=== PATIENT | male | born 1950 | race Caucasian/White ===

== ENCOUNTER → 2020-02-27 16:20 | Outpatient (CLI) | payer MEDICARE, MEDICAID, SELFPAY ==
[2020-02-27 16:53] LABS: Basophils # 0.1 K/mm3 (0-0.2); Eosinophils # 0.3 K/mm3 (0.0-0.4); Eosinophils % 3.1 % (0.1-12.0); Hematocrit 43.7 % (42.0-52.0); Hemoglobin 13.9 g/dL (14.1-18.0); Lymphocytes # 1.7 K/mm3 (0.7-4.5); Lymphocytes % 20.5 % (10-50); Mean Corpuscular HGB Conc 31.8 g/dL (31.8-35.4); Mean Corpuscular Hemoglobin 29.7 pg (27.0-31.2); Mean Corpuscular Volume 93.3 fl (80-94); Mean Platelet Volume 9.1 fl (7.4-10.4); Monocytes # 0.7 K/mm3 (0.1-1.0); Monocytes % 8.2 % (1.7-9.3); Neutrophils # 5.6 K/mm3 (1.8-7.8); Neutrophils % 67.2 % (37.0-80.0); Platelet Count 453 K/mm3 (142-424); Red Blood Count 4.68 M/mm3 (4.60-6.20); Red Cell Distribution Width 15.8 % (11.5-17.5); White Blood Count 8.4 K/mm3 (4.8-10.8)
[2020-02-27 17:28] LABS: Alanine Aminotransferase 12 U/L (12-78); Albumin Level 4.1 g/dl (3.5-5.0); Albumin/Globulin Ratio 1.3 (1.1-1.8); Alkaline Phosphatase 118 U/L (38-126); Anion Gap 15.8 mEq/L (5-15); Aspartate Amino Transferase 21 U/L (17-59); Bilirubin,Total 0.4 mg/dl (0.2-1.3); Blood Urea Nitrogen 16 mg/dl (9-20); Calcium 10.7 mg/dl (8.4-10.2); Carbon Dioxide 24 mmol/L (22.0-30.0); Chloride 100 mmol/L (98-107); Chol/HDL Ratio 3.4 (1-3.5); Cholesterol 148 mg/dl (140-200); Estimated Glomerular Filt Rate 84 ml/min (>60); GFR (African American) 101 ML/MIN (>60); Globulin 3.2 g/dL (1.3-3.2); Glucose 123 mg/dl (74-100); HDL Cholesterol 44 mg/dl (40-60); Potassium 4.8 mmoL/L (3.5-5.1); Sodium 135 mmol/L (136-145); Total Protein,Serum 7.3 g/dl (6.3-8.2); Triglycerides 155 mg/dl (30-150); VLDL Cholesterol 31 mg/dL (0-40)
[2020-02-27 17:41] LABS: Direct LDL Cholesterol 89.83 mg/dL (100-129)
[2020-02-27 17:46] LABS: T4 (Thyroxine) 6.2 ug/dl (5.53-11.0)
[2020-02-27 17:59] LABS: Prostate Specific Ag Screen 0.3 ng/ml (0.0-4.0); Thyroid Stimulating Hormone 4.02 uIU/mL (0.465-4.68)
== END ==
PROVIDERS: Visit Provider Family Medicine
DX: G47.00 Insomnia, unspecified (principal); I10 Essential (primary) hypertension; K45.8 Other specified abdominal hernia without obstruction or gangrene; Z12.5 Encounter for screening for malignant neoplasm of prostate
CPT/HCPCS: 80053; 80061; 84436; 84443; 85025; G0103

== ENCOUNTER → 2020-05-07 17:33 | Outpatient (CLI) | payer MEDICARE, MEDICAID, SELFPAY ==
[2020-05-07 18:58] LABS: Hemoglobin A1C 7.6 % (4.0-6.0)
== END ==
PROVIDERS: Visit Provider Family Medicine
DX: E11.9 Type 2 diabetes mellitus without complications (principal); Z79.4 Long term (current) use of insulin
CPT/HCPCS: 83036

== ENCOUNTER → 2021-08-13 16:00 | Outpatient (CLI) | payer MEDICARE, MEDICAID, SELFPAY ==
[2021-08-13 17:53] LABS: Creatinine,Urine Random 37 mg/dL (Not Estab.)
[2021-08-13 18:03] LABS: Alanine Aminotransferase 19 U/L (12-78); Albumin Level 4.2 g/dl (3.5-5.0); Albumin/Globulin Ratio 1.5 (1.1-1.8); Alkaline Phosphatase 89 U/L (38-126); Anion Gap 14.7 mEq/L (5-15); Aspartate Amino Transferase 24 U/L (17-59); Bilirubin,Total 0.4 mg/dl (0.2-1.3); Blood Urea Nitrogen 23 mg/dl (9-20); Calcium 9.9 mg/dl (8.4-10.2); Carbon Dioxide 24 mmol/L (22.0-30.0); Chloride 102 mmol/L (98-107); Chol/HDL Ratio 3.4 (1-3.5); Cholesterol 132 mg/dl (140-200); Estimated Glomerular Filt Rate 83 ml/min (>60); GFR (African American) 101 ML/MIN (>60); Globulin 2.8 g/dL (1.3-3.2); Glucose 212 mg/dl (74-100); HDL Cholesterol 39 mg/dl (40-60); Potassium 4.7 mmoL/L (3.5-5.1); Sodium 136 mmol/L (136-145); Triglycerides 148 mg/dl (30-150); VLDL Cholesterol 30 mg/dL (0-40)
[2021-08-13 18:13] LABS: Basophils # 0.1 K/mm3 (0-0.2); Basophils % 1.4 % (0.1-2.0); Eosinophils # 0.2 K/mm3 (0.0-0.4); Eosinophils % 1.6 % (0.1-12.0); Hematocrit 39.5 % (42.0-52.0); Hemoglobin 12.1 g/dL (14.1-18.0); Lymphocytes # 1.7 K/mm3 (0.7-4.5); Lymphocytes % 18.9 % (10-50); Mean Corpuscular HGB Conc 30.7 g/dL (31.8-35.4); Mean Corpuscular Volume 91.2 fl (80-94); Mean Platelet Volume 8.7 fl (7.4-10.4); Monocytes # 0.7 K/mm3 (0.1-1.0); Monocytes % 7.4 % (1.7-9.3); Neutrophils # 6.4 K/mm3 (1.8-7.8); Neutrophils % 70.8 % (37.0-80.0); Platelet Count 539 K/mm3 (142-424); Red Blood Count 4.33 M/mm3 (4.60-6.20); Red Cell Distribution Width 16.5 % (11.5-17.5); White Blood Count 9.1 K/mm3 (4.8-10.8)
[2021-08-13 18:17] LABS: Hemoglobin A1C 7.3 % (4.0-6.0)
[2021-08-13 18:20] LABS: 25-OH Vitamin D, Total 17.9 ng/mL (30-100)
[2021-08-13 18:35] LABS: Prostate Specific Ag Screen 0.3 ng/ml (0.0-4.0); Thyroid Stimulating Hormone 3.05 uIU/mL (0.465-4.68)
== END ==
PROVIDERS: Visit Provider Family Medicine
DX: Z00.00 Encounter for general adult medical examination without abnormal findings (principal); Z12.5 Encounter for screening for malignant neoplasm of prostate; E55.9 Vitamin D deficiency, unspecified; E11.9 Type 2 diabetes mellitus without complications; F51.01 Primary insomnia; Z79.4 Long term (current) use of insulin
CPT/HCPCS: 80053; 80061; 82043; 82306; 82570; 83036; 84443; 85025; G0103

== ENCOUNTER → 2021-11-23 12:30 | Outpatient (CLI) | payer MEDICARE, MEDICAID, SELFPAY ==
[2021-11-23 13:36] LABS: Basophils # 0.1 K/mm3 (0-0.2); Basophils % 1.3 % (0.1-2.0); Eosinophils # 0.2 K/mm3 (0.0-0.4); Eosinophils % 2.4 % (0.1-12.0); Hematocrit 37.8 % (42.0-52.0); Hemoglobin 11.8 g/dL (14.1-18.0); Lymphocytes # 1.9 K/mm3 (0.7-4.5); Lymphocytes % 24.6 % (10-50); Mean Corpuscular HGB Conc 31.3 g/dL (31.8-35.4); Mean Corpuscular Hemoglobin 27.6 pg (27.0-31.2); Mean Corpuscular Volume 88.3 fl (80-94); Mean Platelet Volume 7.8 fl (7.4-10.4); Monocytes # 0.7 K/mm3 (0.1-1.0); Monocytes % 8.7 % (1.7-9.3); Neutrophils # 4.8 K/mm3 (1.8-7.8); Neutrophils % 62.9 % (37.0-80.0); Platelet Count 467 K/mm3 (142-424); Red Blood Count 4.27 M/mm3 (4.60-6.20); White Blood Count 7.6 K/mm3 (4.8-10.8)
[2021-11-23 13:57] LABS: Alanine Aminotransferase 18 U/L (12-78); Alkaline Phosphatase 90 U/L (38-126); Anion Gap 13.7 mEq/L (5-15); Aspartate Amino Transferase 25 U/L (17-59); Bilirubin,Unconjugated 0.3 mg/dL (0.0-1.1); Blood Urea Nitrogen 19 mg/dl (9-20); Calcium 10.7 mg/dl (8.4-10.2); Carbon Dioxide 29 mmol/L (22.0-30.0); Chloride 97 mmol/L (98-107); Chol/HDL Ratio 2.6 (1-3.5); Cholesterol 130 mg/dl (140-200); Estimated Glomerular Filt Rate 83 ml/min (>60); GFR (African American) 101 ML/MIN (>60); Glucose 120 mg/dl (74-100); HDL Cholesterol 50 mg/dl (40-60); Magnesium 1.8 mg/dl (1.6-2.3); Potassium 4.7 mmoL/L (3.5-5.1); Sodium 135 mmol/L (136-145); Total Protein,Serum 6.8 g/dl (6.3-8.2); Triglycerides 66 mg/dl (30-150); VLDL Cholesterol 13 mg/dL (0-40)
[2021-11-23 13:59] LABS: Bilirubin,Total < 0.1 mg/dl (0.2-1.3)
[2021-11-23 14:08] LABS: Direct LDL Cholesterol 64.49 mg/dL (100-129)
[2021-11-23 14:10] LABS: Free T4 (Free Thyroxine) 0.82 ng/dl (0.78-2.19)
[2021-11-23 14:24] LABS: Thyroid Stimulating Hormone 4.45 uIU/mL (0.465-4.68)
[2021-11-23 15:42] LABS: Bilirubin,Indirect 0.1 mg/dL (0.0-0.9)
== END ==
PROVIDERS: PCP Family Medicine; Visit Provider Internal Medicine
DX: I10 Essential (primary) hypertension (principal); R06.00 Dyspnea, unspecified; R94.31 Abnormal electrocardiogram [ECG] [EKG]; Z79.899 Other long term (current) drug therapy
CPT/HCPCS: 36415; 80048; 80061; 80076; 83735; 84439; 84443; 85025

== ENCOUNTER → 2021-12-13 11:12 | Outpatient (CLI) | payer MEDICARE, MEDICAID, SELFPAY ==
--- NOTE | 2021-12-13 11:57 | NM_ITS ---
APPROVED REPORT Exam: Nuclear Stress Test Indication: short of breath Patient Location: Outpatient Stress Tech: Dyan Hawkins [place] Tech:FRENCH Barrios RT(R)(N) Ht: 6 ft 2 in Wt: 260 lbs HR: 66 bpm BP: 157/78 mmHg BSA: 2.43 m2 TID: 1.14 BMI: 33.3 History: short of breath Procedure: Patient received a 0.4 mg of intravenous Lexiscan, resting heart rate 66 bpm, resting blood pressure 157/78 mmHg, with Lexiscan maximum heart rate achived was 82 bpm which is Less than 85 % of the maximum predicted heart rate and blood pressure was 157/78 mmHg. With Lexiscan, patient denied any complaint of chest pain. patient was unable to lay on his belly for prone images Electrocardiogram Electrocardiogram shows sinus rhythm, with Lexiscan there is less than 1.[address] segment depression noted from the baseline EKG. The EKG portion of the Lexiscan is nondiagnostic. Cardiac Stress and Resting SPECT Images: Cardiac Stress and Resting SPECT images were obtained using technetium 99m Myoview 31.2 mCi stress and 10.14 mCi at rest. Gated SPECT for analysis of segmental wall motion and calculation of the ejection fraction also done. Cardiac stress and rest SPECT images show defect in the inferior wall with normal contractility gated SPECT is likely secondary to soft tissue attenuation, no reversible ischemia seen, compared to ejection fraction is 52% with no regional wall motion abnormality, right ventricle is normal size and contractility. Conclusion: 1. The EKG portion of the Lexiscan is nondiagnostic. 2. No scintigraphic evidence of reversible ischemia seen, compared right ejection fraction 52% with no regional wall motion abnormality, right ventricle is normal size and contractility. 3. Likely normal Lexiscan Myoview study. Electronically signed by : Oral Lombardo MD 12/13/2021 19:37:44
--- NOTE | 2021-12-13 13:50 | HMH.ITSHM ---
Current Home Medications as stated by this patient Adan Rivera or disability representative. []ZOLPIDEM OXYCODONE OMEPRAZOLE INSULIN HYDROCORTISONE GABAPENTIN DULOXETINE CLONIDINE CLONAZEPAM CETIRIZINE BUSPIRONE ATORVASTATIN AMLODIPINE ALLOOPURINOL
--- NOTE | 2021-12-13 14:04 | CA_ITS ---
APPROVED REPORT Exam: Pharmacologic Technologist: Dyan Knutson, Ht: 6 ft 2 in Wt: 260 lbs BSA: 2.43 m2 HR: 65 bpm BP: 157/78 mmHg Medical History Medications: Amlodipine,,,,, Omeprazole,,,,, Gabapentin,,,,, Allopurinol,,,,, Atorvastatin,,,,, Buspirone,,,,, ClonAZEPAM,,,,, INSULIN,,,,, Cymbalta,,,,, OxYCODONE,,,,, CetIRIZINE,,,,, Hydrocortisone,,,,, Stress Test Details Test: LEXISCAN HR Resting HR: 66 bpm Max Heart Rate (APMHR): 149.047658 bpm Max HR Achieved: 82 bpm Target HR (85% APMHR): 126.597984 bpm % of APMHR: 55.03 Recovery HR: 71 bpm BP Resting BP: 157/78 mmHg Max BP: 157/78 mmHg Recovery BP: 149.0/73.0 mmHg ECG Resting ECG: SR 63 bpm Clinical Exercise duration: 04:00 min Highest Stage Achieved: Stress ECG Conclusion Symptoms: SOA, w/ Lexiscan & nausea. no chest pain Arrhythmias/Ectopy: PVC noted ST-T Changes: 1.5mm ST segment depression Conclusion: Electronically signed by : Oral Lombardo MD 12/13/2021 19:34:41
== END ==
PROVIDERS: PCP Family Medicine; Visit Provider Internal Medicine
DX: I10 Essential (primary) hypertension (principal); R00.2 Palpitations; R06.00 Dyspnea, unspecified; R07.89 Other chest pain; R07.9 Chest pain, unspecified; R42 Dizziness and giddiness; R94.31 Abnormal electrocardiogram [ECG] [EKG]
CPT/HCPCS: 78452; 93017; 93306; A9502; J2785

== ENCOUNTER → 2021-12-23 14:07 | Outpatient (CLI) | payer MEDICARE, MEDICAID, SELFPAY ==
--- NOTE | 2021-12-23 14:08 | CA_ITS ---
APPROVED REPORT EXAM: Comprehensive 2D, Doppler, and color-flow Echocardiogram Auto Adjudication Specialist: ANGELIC Barney, RVS Ht: 6 ft 2 in Wt: 256lbs BSA: 2.41 BP: 163/90 mmHg Indications: Obesity-clss III, SOB, Abn ekg, DM, HTN, Leg amputation Echo Enhancing Agent Comments: Extremely poor acoustic windows due to extreme body habitus with inability to maintain positioning. 2D Dimensions IVSd 0.85 cm LVEF (Visual) 62.20 % PWd 0.97 cm LVDd 5.82 cm LVDs 3.84 cm Aortic Root 2.78 cm Left Atrium 3.32 cm LVOT 2.11 cm (M/F) 1.5-2.5 M-Mode Dimensions LA Diam 4.23 cm (1.9-4.0) Ao Diam 3.29 cm (2.0-3.7) TAPSE 1.88 (<1.7) LV Diastology E Decel Time 237.00 (160-240 msec) E/A Ratio 0.81 MED E' 7.40 (< 7 cm/sec) MED A' 13.80 cm/s E'/MED E' Ratio 7.76 (>14) LAT E' 8.40 (<10 cm/sec) LAT A' 6.40 cm/s E/LAT E' Ratio 6.83 (>14) Aortic Valve LVOT Max 106.00 (70-110 cm/s) LVOT VTI 16.40 cm AoV Peak Humza. 133.00 (50-130 cm/s) AO Peak GR. 7.10 mmHg AO Mean GR. 3.50 (<5 mmHg) AO VTI 16.14 (18-25 cm) RONNY (VTI) 3.55 (2.5-4.5 cm2) Mitral Valve MV A Velocity 71.00 (40-130 cm/s) E/A Ratio 0.81 MV Decel. Time 237.00 (160-240 ms) Pulmonary Valve PV Peak Velocity 93.00 (50-150 cm/s) Left Ventricle Left atrium is mildly enlarged, left ventricle is normal size mild concentric left ventricular hypertrophy, estimated ejection fraction 55% with no regional wall motion abnormality, Doppler evidence of impaired LV relaxation seen, tissue Doppler is inadequate. Right Ventricle Right atrium and right ventricle are normal size and contractility. Aortic Valve Aortic valve is minimally thickened and calcified there is no aortic stenosis or aortic insufficiency. Mitral Valve Mitral valve is grossly normal, there is trace mitral regurgitation. Tricuspid Valve Tricuspid valve grossly normal, there is trace tricuspid regurgitation, tricuspid regurgitation jet velocity is inadequate for calculation of the right ventricular systolic pressure. Pulmonic Valve Pulmonic valve is poorly visualized. Great Vessels Aortic root is normal size. Inferior vena cava is poorly visualized. Pericardium No significant pericardial effusion noted. Conclusion 1. Technically difficult study because of the patient factors and poor acoustic windows. 2. Mildly enlarged left atrium, normal left ventricular size, mild concentric left ventricular hypertrophy, estimated ejection fraction 55% with no regional wall motion abnormality, Doppler evidence of impaired LV relaxation seen. 3. Trace mitral and tricuspid regurgitation. 4. No significant pericardial effusion. 5. Inferior vena cava is poorly visualized. Electronically signed by : Oral Lombardo MD 12/24/2021 10:35:55
[2021-12-23 15:27] LABS: Chloride 103 mmol/L (98-107); Potassium 4.8 mmoL/L (3.5-5.1); Sodium 134 mmol/L (136-145)
[2021-12-23 15:30] LABS: Anion Gap 11.8 mEq/L (5-15); Blood Urea Nitrogen 17 mg/dl (9-20); Calcium 9.9 mg/dl (8.4-10.2); Carbon Dioxide 24 mmol/L (22.0-30.0); Estimated Glomerular Filt Rate 83 ml/min (>60); GFR (African American) 101 ML/MIN (>60); Glucose 293 mg/dl (74-100)
== END ==
PROVIDERS: PCP Family Medicine; Visit Provider Nurse Practitioner
DX: R06.00 Dyspnea, unspecified (principal); E11.9 Type 2 diabetes mellitus without complications; I10 Essential (primary) hypertension; Z79.4 Long term (current) use of insulin
CPT/HCPCS: 36415; 80048; 93306

== ENCOUNTER → 2022-04-21 14:28 | Outpatient (CLI) | payer MEDICARE, MEDICAID, SELFPAY ==
[2022-04-21 18:33] LABS: Basophils # 0.1 K/mm3 (0-0.2); Basophils % 1.2 % (0.1-2.0); Eosinophils # 0.3 K/mm3 (0.0-0.4); Eosinophils % 2.7 % (0.1-12.0); Hematocrit 37.2 % (42.0-52.0); Hemoglobin 11.1 g/dL (14.1-18.0); Lymphocytes # 1.9 K/mm3 (0.7-4.5); Lymphocytes % 19.4 % (10-50); Mean Corpuscular HGB Conc 29.8 g/dL (31.8-35.4); Mean Corpuscular Hemoglobin 25.3 pg (27.0-31.2); Mean Platelet Volume 8.8 fl (7.4-10.4); Monocytes # 0.9 K/mm3 (0.1-1.0); Neutrophils # 6.5 K/mm3 (1.8-7.8); Neutrophils % 67.7 % (37.0-80.0); Platelet Count 506 K/mm3 (142-424); Red Blood Count 4.38 M/mm3 (4.60-6.20); Red Cell Distribution Width 18.1 % (11.5-17.5); White Blood Count 9.5 K/mm3 (4.8-10.8)
[2022-04-21 18:58] LABS: Alanine Aminotransferase 17 U/L (12-78); Albumin Level 3.7 g/dl (3.5-5.0); Albumin/Globulin Ratio 1.4 (1.1-1.8); Alkaline Phosphatase 118 U/L (38-126); Anion Gap 12.9 mEq/L (5-15); Aspartate Amino Transferase 25 U/L (17-59); Bilirubin,Total 0.2 mg/dl (0.2-1.3); Blood Urea Nitrogen 21 mg/dl (9-20); Calcium 9.5 mg/dl (8.4-10.2); Carbon Dioxide 28 mmol/L (22.0-30.0); Chloride 95 mmol/L (98-107); Estimated Glomerular Filt Rate 66 ml/min (>60); GFR (African American) 80 ML/MIN (>60); Globulin 2.7 g/dL (1.3-3.2); Glucose 212 mg/dl (74-100); Potassium 4.9 mmoL/L (3.5-5.1); Sodium 131 mmol/L (136-145); Total Protein,Serum 6.4 g/dl (6.3-8.2)
[2022-04-21 19:28] LABS: Thyroid Stimulating Hormone 4.61 uIU/mL (0.465-4.68)
[2022-04-21 19:47] LABS: Hemoglobin A1C 8.1 % (4.0-6.0)
== END ==
PROVIDERS: PCP Family Medicine; Visit Provider Family Medicine
DX: E11.9 Type 2 diabetes mellitus without complications (principal); R06.02 Shortness of breath; F39 Unspecified mood [affective] disorder; Z79.4 Long term (current) use of insulin
CPT/HCPCS: 80053; 83036; 84443; 85025

== ENCOUNTER → 2022-12-08 15:05 | Outpatient (CLI) | payer MEDICARE, MEDICAID, SELFPAY ==
[2022-12-08 18:34] LABS: Chloride 101 mmol/L (98-107); Sodium 135 mmol/L (136-145)
[2022-12-08 18:35] LABS: Potassium 5.6 mmoL/L (3.5-5.1)
[2022-12-08 18:37] LABS: Alanine Aminotransferase 13 U/L (12-78); Albumin Level 3.8 g/dl (3.5-5.0); Albumin/Globulin Ratio 1.1 (1.1-1.8); Alkaline Phosphatase 100 U/L (38-126); Anion Gap 18.6 mEq/L (5-15); Aspartate Amino Transferase 20 U/L (17-59); Blood Urea Nitrogen 36 mg/dl (9-20); Carbon Dioxide 21 mmol/L (22.0-30.0); Estimated Glomerular Filt Rate 33 ml/min (>60); GFR (African American) 40 ML/MIN (>60); Globulin 3.4 g/dL (1.3-3.2); Total Protein,Serum 7.2 g/dl (6.3-8.2)
[2022-12-08 18:38] LABS: Calcium 9.7 mg/dl (8.4-10.2); Glucose 120 mg/dl (74-100)
[2022-12-08 18:39] LABS: Bilirubin,Total 0.1 mg/dl (0.2-1.3)
== END ==
PROVIDERS: PCP Family Medicine; Visit Provider Family Medicine
DX: I10 Essential (primary) hypertension (principal)
CPT/HCPCS: 80053

== ENCOUNTER → 2022-12-22 15:20 | Outpatient (CLI) | payer MEDICARE, MEDICAID, SELFPAY ==
[2022-12-22 18:29] LABS: Chloride 102 mmol/L (98-107)
[2022-12-22 18:30] LABS: Potassium 5.4 mmoL/L (3.5-5.1); Sodium 134 mmol/L (136-145)
[2022-12-22 18:33] LABS: Alanine Aminotransferase 11 U/L (12-78); Albumin Level 3.3 g/dl (3.5-5.0); Albumin/Globulin Ratio 1.1 (1.1-1.8); Alkaline Phosphatase 83 U/L (38-126); Anion Gap 15.4 mEq/L (5-15); Aspartate Amino Transferase 19 U/L (17-59); Blood Urea Nitrogen 28 mg/dl (9-20); Calcium 9.2 mg/dl (8.4-10.2); Carbon Dioxide 22 mmol/L (22.0-30.0); Estimated Glomerular Filt Rate 33 ml/min (>60); GFR (African American) 40 ML/MIN (>60); Globulin 2.9 g/dL (1.3-3.2); Glucose 118 mg/dl (74-100); Total Protein,Serum 6.2 g/dl (6.3-8.2)
[2022-12-22 18:38] LABS: Bilirubin,Total < 0.1 mg/dl (0.2-1.3)
[2022-12-22 18:44] LABS: Hemoglobin A1C 6.7 % (4.0-6.0)
== END ==
PROVIDERS: PCP Family Medicine; Visit Provider Family Medicine
DX: E11.9 Type 2 diabetes mellitus without complications (principal); Z71.2 Person consulting for explanation of examination or test findings; Z79.4 Long term (current) use of insulin
CPT/HCPCS: 80053; 83036

== ENCOUNTER → 2023-01-26 23:35 | Outpatient (CLI) | payer MEDICARE, MEDICAID, SELFPAY ==
[2023-01-26 18:19] LABS: Chloride 102 mmol/L (98-107)
[2023-01-26 18:20] LABS: Basophils # 0.1 K/mm3 (0-0.2); Basophils % 0.6 % (0.1-2.0); Eosinophils # 0.6 K/mm3 (0.0-0.4); Eosinophils % 7.3 % (0.1-12.0); Hematocrit 28.8 % (42.0-52.0); Hemoglobin 8.7 g/dL (14.1-18.0); Lymphocytes # 1.1 K/mm3 (0.7-4.5); Lymphocytes % 12.9 % (10-50); Mean Corpuscular Hemoglobin 24.9 pg (27.0-31.2); Monocytes # 0.6 K/mm3 (0.1-1.0); Monocytes % 7.5 % (1.7-9.3); Neutrophils # 5.9 K/mm3 (1.8-7.8); Neutrophils % 71.8 % (37.0-80.0); Platelet Count 576 K/mm3 (142-424); Potassium 5.9 mmoL/L (3.5-5.1); Red Blood Count 3.48 M/mm3 (4.60-6.20); Red Cell Distribution Width 19.5 % (11.5-17.5); Sodium 138 mmol/L (136-145); White Blood Count 8.2 K/mm3 (4.8-10.8)
[2023-01-26 18:22] LABS: Alanine Aminotransferase 13 U/L (12-78); Aspartate Amino Transferase 21 U/L (17-59); Blood Urea Nitrogen 23 mg/dl (9-20); Estimated Glomerular Filt Rate 43 ml/min (>60); GFR (African American) 52 ML/MIN (>60)
[2023-01-26 18:23] LABS: Albumin Level 3.5 g/dl (3.5-5.0); Albumin/Globulin Ratio 1.1 (1.1-1.8); Alkaline Phosphatase 120 U/L (38-126); Anion Gap 14.9 mEq/L (5-15); Bilirubin,Total 0.3 mg/dl (0.2-1.3); Carbon Dioxide 27 mmol/L (22.0-30.0); Globulin 3.1 g/dL (1.3-3.2); Glucose 152 mg/dl (74-100); Total Protein,Serum 6.6 g/dl (6.3-8.2)
== END ==
PROVIDERS: PCP Family Medicine; Visit Provider Family Medicine
DX: G89.29 Other chronic pain (principal); M54.9 Dorsalgia, unspecified; N28.9 Disorder of kidney and ureter, unspecified
CPT/HCPCS: 80053; 82043; 85025